=== PATIENT | female | born 1980 | race Caucasian/White ===

== ENCOUNTER 2024-02-10 07:09 | Emergency (ER) | payer OTHER, SELFPAY ==
--- NOTE | ~2024-02-10 | US_ITS ---
EXAMINATION: US pelvic complete w TV DATE: 02/10/2024 09:31 INDICATION: Ovarian cyst. Left flank pain. TECHNIQUE: Multiple transabdominal and transvaginal sonographic images of the pelvis were obtained. COMPARISON: CT abdomen and pelvis 02/10/2024 FINDINGS: TRANSABDOMINAL ULTRASOUND: The uterus is absent. The right ovary measures 2.5 x 1.9 x 1.3 cm. There is no free fluid in the pelv is. TRANSVAGINAL ULTRASOUND: The left ovary measures 8.3 x 3.5 x 6.3 cm. There are 3.9 cm and 3.7 cm heterogeneous mass without in ternal vascular flow in left ovary. There is normal vascular flow in the left ovary. IMPRESSION: 1. Two masses in the left ovary with the larger measuring 3.9 cm. These findings may be hemorrhagic c ysts, but neoplasm is not excluded. Pelvis ultrasound in 6-12 weeks is recommended. Reviewed, dictated and finalized at location [facility]. IMPRESSION: 1. Two masses in the left ovary with the larger measuring 3.9 cm. These finding s may be hemorrhagic cysts, but neoplasm is not excluded. Pelvis ultrasound in 6-12 weeks is recommended.
--- NOTE | ~2024-02-10 | CT_ITS ---
CT of the Abdomen and Pelvis: Indication: Left flank pain Technique: 2.5 mm axial scans were obtained through the abdomen and pelvis following intravenous adm inistration of 100 cc of Omnipaque 350. Dose reduction technique was used on this scan by utilizing a utomated exposure control and iterative reconstruction technique. The dose-length product (DLP) was 5 47.77 mGy-cm. Findings: Scans through the lung bases are unremarkable. Several small hepatic cysts are present. The spleen, pancreas, gallbladder, adrenals and kidneys are within normal limits. No evidence of aortic aneurysm. No lymphadenopathy. No bowel obstruction or bowel wall thickening. There is no evidence to suggest acute appendicitis. Images through the pelvis were performed. Urinary bladder unremarkable. 2 adjacent probable left ovar cathryn cysts are present, measuring 4.5 cm and 3.6 cm in diameter respectively. No ascites. Status post hysterectomy. Impression: 2 adjacent left ovarian cyst measuring 4.5 cm and 3.6 cm in size respectively. Consider pelvic ultras ound to further assess for ovarian torsion, it is of clinical concern. Reviewed, dictated and finalized at [facility]. Impression: 2 adjacent left ovarian cyst measuring 4.5 cm and 3.6 cm in size respectively. Consider pelvic ultrasound to further assess for ovarian torsion, it is of clin ical concern.
--- NOTE | 2024-02-10 07:29 | ED.GENADULT ---
HPI - General Adult General Chief complaint: Back Pain/Injury Stated complaint: left flank pain Time Seen by Provider: 02/10/24 07:16 History of Present Illness HPI narrative: 43-year-old female presenting to the emergency department for evaluation for left flank pain. Patient does have a prior history of ureteral calculi. Patient states on Thursday she was having some left flank pain that she felt a was similar to her previous kidney stones. Patient did notice some hematuria on Thursday. Patient did have some pain medication at home from a prior surgery that she took and this did help. Patient states she did feel improved on Thursday and Thursday was able to volunteer on Thursday. When patient woke up this morning she had worsening left flank pain that does radiate around to the front. Patient has a prior history of kidney stones and hysterectomy. Related Data Home Medications Medication Instructions Recorded Confirmed cetirizine 10 mg tablet (Zyrtec) 10 mg PO DAILY PRN 02/12/22 02/14/22 elagolix 150 mg tablet (Orilissa) 150 mg PO DAILY 02/12/22 02/14/22 fluticasone propionate 50 1 spray intranasal DAILY 02/12/22 02/14/22 mcg/actuation nasal spray,suspension (Flonase Allergy Relief) Allergies Allergy/AdvReac Type Severity Reaction Status Date / Time No Known Allergies Allergy Verified 02/10/24 07:09 Review of Systems Review of Systems: All systems reviewed & are unremarkable except as noted in HPI and below PMFSH Past Medical History Medical History History of kidney stones History of stress test Surgical History Surgical History History of removal of ovarian cyst (~2015) Family History Family History Other Cancer Social History Social History Smoking status: Former smoker Tobacco type: cigarettes Alcohol intake: current Alcohol use details: 1-2 drinks a week Substance use: never Substance use type: does not use Exam Narrative: APPEARANCE: Uncomfortable appearing HEAD: normocephalic, atraumatic. EYES: PERRLA/EOMI, conjunctivae clear. NOSE: Normal no drainage EARS:TMS clear with good light reflex. THROAT: Pharynx clear, no exudate. NECK: Supple. No adenopathy, no masses. RESPIRATORY: Airway patent, respirations nonlabored. Clear to auscultation bilaterally, no rales, rhonchi, wheezing. CARDIOVASCULAR: Regular rate and rhythm without murmurs rubs or gallops. ABDOMINAL: Left CVA tenderness to palpation MUSCULOSKELETAL: Moves all extremities. Strength/ROM intact, No edema, No calf tenderness. NEURO: Alert. Cranial nerves II through XII intact. Grossly intact SKIN: Warm, dry. Normal Color Course Course Emergency Course: Patient was updated on the results of the workup and was comfortable with plan for discharge home. Vital Signs Vital signs: Vital Signs Pulse Rate 50 L 02/10/24 07:31 Respiratory Rate 16 02/10/24 07:31 Blood Pressure 132/82 02/10/24 07:31 Pulse Oximetry 98 02/10/24 07:31 Temperature 97.9 F 02/10/24 10:35 Pulse Rate 75 02/10/24 10:35 Respiratory Rate 16 02/10/24 10:35 Blood Pressure 123/85 02/10/24 10:35 Pulse Oximetry 98 02/10/24 10:35 Medical Decision Making MDM Narrative Medical decision making narrative: 43-year-old female present to the emergency department for evaluation for left-sided abdominal pain. Patient is afebrile with no leukocytosis and a stable hemoglobin of 14.5. Patient was initially concerned that her symptoms were being caused by ureteral calculi. Patient has no hematuria no evidence of infection on the UA. CT scan was ordered and did show concern for left-sided ovarian cyst. Ultrasound was ordered to evaluate for torsion and left ovary does have adequate bloo
[2024-02-10 07:31] VITALS: BP 132/82; PULSE 50; RESP 16; O2SAT 98
[2024-02-10] MEDS: ONDANSETRON INJ 4 MG/2 ML VIAL IV PUSH (07:44)
[2024-02-10] MEDS: HYDROmorphone HCL INJ (*CRX) 1 MG/ML SYR 0.5 MG IV PUSH ×2 (07:45→10:07)
[2024-02-10 07:49] LABS: Basophils Percent Auto 0.6 % (0.2-1.2); Eosinophils Absolute Auto 0.2 K/mm3 (0-0.3); Hematocrit 44.4 % (37.0-47.0); Hemoglobin 14.5 g/dL (12.0-15.0); Immature Granulocyte Absolute 0.02 K/mm3 (0.00-0.031); Immature Granulocyte Percent A 0.4 % (0-0.5); Lymphocytes Absolute Auto 1.68 K/mm3 (0.9-3.2); Lymphocytes Percent Auto 31.8 % (18.3-44.2); Mean Corpuscular HGB Conc 32.7 g/dl (32-36); Mean Corpuscular Hemoglobin 28.8 pg (26-34); Mean Corpuscular Volume 88.3 fl (80-100); Mean Platelet Volume 10.4 fl (7.4-10.4); Monocytes Absolute Auto 0.6 K/mm3 (0.1-0.6); Monocytes Percent Auto 11.2 % (2.6-8.5); Neutrophils Absolute Auto 2.8 K/mm3 (1.3-6.7); Platelet Count Result 283 k/mm3 (150-375); Red Blood Count 5.03 M/mm3 (4.2-5.4); Red Cell Distribution Width 15.1 % (11.5-14.5); White Blood Count 5.3 K/mm3 (4.5-10.0)
[2024-02-10 07:50] LABS: Add Urine Microscopic? YES; Appearance Urine Clear (Clear); Bilirubin Urine Negative (Negative); Blood Urine Negative (Negative); Color Urine Dark Yellow (Yellow); Glucose Urine UA Negative (Negative); Ketones Urine Negative (Negative); Leukocyte Esterase Ur Negative LEU/UL (Negative); Nitrate Urine Negative (Negative); Protein Urine Negative (Negative); Specific Grav Ur 1.018 (1.001-1.035); Urobilinogen Urine 0.2 mg/dL (<2.0); pH Urine 5.5 (5.0-9.0)
[2024-02-10 07:58] LABS: Alanine Aminotransferase 17 U/L (6-35); Albumin Level 4.6 g/dL (3.5-5.1); Alkaline Phosphatase 58 U/L (38-126); Anion Gap 7 mmol/L (4-12); Aspartate Amino Transferase 26 U/L (14-36); Bilirubin,Total 0.4 mg/dL (0.2-1.3); Blood Urea Nitrogen 14 mg/dL (7-17); Carbon Dioxide 28 mmol/L (22-30); Chloride 105 mmol/L (98-107); Estimated CRCL calculation 59 ml/min; Estimated Glomerular Filt Rate 60; Glucose 88 mg/dL (65-110); Potassium 4.2 mmol/L (3.4-5.0); Sodium 140 mmol/L (137-145)
[2024-02-10] MEDS: SODIUM CHLORIDE 0.9% IV 1,000 ML 999 ML IV CONT (08:07)
[2024-02-10 08:30] VITALS: BP 127/89; PULSE 48; RESP 16; O2SAT 100
[2024-02-10 08:42] LABS: Lactic Acid Reflex < 0.5 mmol/L (0.7-2.0)
[2024-02-10 08:50] LABS: Lipase 117 U/L (23-300)
[2024-02-10 09:46] VITALS: BP 127/82; PULSE 65; RESP 13; O2SAT 100
[2024-02-10 10:15] VITALS: BP 117/88; PULSE 58; RESP 20; O2SAT 100
[2024-02-10 10:35] VITALS: BP 123/85; PULSE 75; RESP 16; TEMP 36.6; O2SAT 98
== END 2024-02-10 10:35 | disposition home or self-care (01) ==
PROVIDERS: Emergency Provider Emergency Medicine
DX: N30.01 Acute cystitis with hematuria (principal); N83.202 Unspecified ovarian cyst, left side; Z87.442 Personal history of urinary calculi; Z87.891 Personal history of nicotine dependence
CPT/HCPCS: 36415; 74177; 76830; 76856; 80053; 81001; 83605; 83690; 85025; 96361; 96374; 96375; 96376; 99284; J1170; J2405; J7030; Q9967